=== PATIENT | female | born 1980 | race Caucasian/White ===

== ENCOUNTER 2025-01-03 16:29 | Emergency (ER) | payer SELFPAY ==
[~2025-01-03] VITALS: Ht 162.6 cm; Wt 68.3 kg
[2025-01-03 18:06] LABS: Hematocrit 44.9 % (36.0-46.0); Hemoglobin 15.4 g/dL (12.2-16.2); Mean Corpuscular Hemoglobin 30.9 pg (28.0-32.0); Mean Corpuscular Volume 90.3 fL (80.0-100.0); Nucleated Red Blood Cells % 0.1 %
[2025-01-03 18:16] LABS: Alanine Aminotransferase 14 U/L (7-40); Albumin 4.5 g/dL (3.2-4.8); Alkaline Phosphatase 93 U/L (46-116); Anion Gap 11 (5-15); BUN/Creatinine Ratio 9.5 (10.0-20.0); Bilirubin, Total 0.9 mg/dL (0.2-1.0); Blood Urea Nitrogen 9 mg/dL (9-23); Calcium 10.4 mg/dL (8.7-10.4); Sodium 140 mmol/L (136-145); Total Protein 7.3 g/dL (5.7-8.2)
[2025-01-03 18:17] LABS: Carbon Dioxide 20 mmol/L (20-31); Chloride 109 mmol/L (98-107); Glucose 112 mg/dL (74-106); Potassium 3.2 mmol/L (3.5-5.1)
--- NOTE | 2025-01-03 18:25 | ED.PDOC ---
GI ASSESSMENT HPI Comments 44y F who presents to the ED for chief complaint of abdominal pain. Pt states she has been having right greater than left upper abdominal pain radiating to the right flank since 0400 this AM. Pt states she has been having abdominal fullness and states it is causing her shortness of breath and states it is making it difficult for her to take a breath. Pt reports nausea, but no vomiting, diarrhea, constipation or dysuria. Pt has been having normal bowel movements. Pt otherwise denies any sick contacts at this time. Pt has noted temp of 97.4F but otherwise has stable vitals in the ED including BP 126/73, 02 sat of 96% on room air, rr 16 and heart rate of 86. Pt denies any other symptoms at this time. Patient expresses concern for liver cirrhosis, although she states she does not drink alcohol and does not report any other risk factors for liver disease. Chief Complaint: Abdominal Pain Time Seen by MD: 18:00 Primary Care Provider: NONE Reviewed Notes: Medications, Allergies Allergies: Coded Allergies: NO KNOWN ALLERGIES (Unverified , 01/03/25) Information Source: Patient Mode of Arrival: Ambulatory Past Medical History PAST MEDICAL HISTORY: HTN Surgical History: Denies all surgeries HARMONIC ANALYST History: Denies all HARMONIC ANALYST Hx Family History Family History: Unknown Social History Smoker: Non-Smoker Alcohol: Denies ETOH Use Drugs: Denies Drug Use Lives In: Home Constitutional: denies: chills, diaphoresis, fatigue, fever, malaise, sweats, weakness, others EENTM: denies: blurred vision, double vision, ear bleeding, ear discharge, ear drainage, ear pain, ear ringing, eye pain, eye redness, hearing loss, mouth pain, mouth swelling, nasal discharge, nose bleeding, nose congestion, nose pain, photophobia, tearing, throat pain, throat swelling, voice changes, others Respiratory: denies: cough, hemoptysis, orthopnea, SOB at rest, shortness of breath, SOB with excertion, stridor, wheezing, others Cardiovascular: denies: chest pain, dizzy spells, diaphoresis, Dyspnea on exertion, edema, irregular heart beat, left arm pain, lightheadedness, palpitations, PND, syncope, others Gastrointestinal: reports: abdominal pain, nausea; denies: abdomen distended, blood streaked bowels, constipated, diarrhea, dysphagia, difficulty swallowing, hematemesis, melena, poor appetite, poor fluid intake, rectal bleeding, rectal pain, vomiting, others Genitourinary: denies: abnormal vagina bleeding, burning, dyspareunia, dysuria, flank pain, frequency, hematuria, incontinence, pain, , vagina discharge, urgency, others Neurological: denies: dizziness, fainting, headache, left sided numbness, left sided weakness, numbness, paresthesia, pre-existing deficit, right sided numbness, right sided weakness, seizure, speech problems, tingling, tremors, weakness, others Musculoskeletal: denies: back pain, gout, joint pain, joint swelling, muscle pain, muscle stiffness, neck pain, others Integumetry: denies: bruises, change in color, change in hair/nails, dryness, laceration, lesions, lumps, rash, wounds, others Allergic/Immunocompromised: denies: Difficulty Healing, Frequent Infections, Hives, Itching, others Hematologic/Lymphatic: denies: anemia, blood clots, easy bleeding, easy bruising, swollen glands, others Endocrine: denies: excessive hunger, excessive sweating, excessive thirst, excessive urination, flushing, intolerance to cold, intolerance to heat, unexplained weight gain, unexplained weight loss, others Psychiatric: denies: anxiety, bipolar disorder, depression, hopeless, panic disorder, schizophrenia, sleepless, suicidal, others All Other Systems: Reviewed and Negative Physical Exam General Appearance: No Apparent Distress HEENT: Other (Pupils and face symmetric. Moist mucous membranes.) Neck: Full Range of Motion, Normal Inspection Respiratory: Lungs Clear, No Accessory Muscle Use, No Respiratory Distress, Normal Breath Sounds Cardiovascular: No Edema, No JVD, Regular Rate/Rhythm Breast Exam: Deferred Gastrointestinal: RUQ, Soft, Tenderness (Right flank tenderness to palpation) Genitalia: Deferred Pelvic: Deferred Rectal: Deferred Extremities: Normal inspection, Normal range of motion, Non-tender, No pedal edema Neurologic: Alert (Oriented x4), Normal Affect, Normal Mood, Other (Ambulatory) Cerebellar Function: NOT DONE Reflexes: NOT DONE Skin: Dry, Normal Color, Warm Lymphatic: NOT DONE EKG EKG : Comments Sinus rhythm, rate 86, normal intervals, normal axis, normal QRS, nonspecific T change. Was a procedure done? Was a procedure done?: No GI differential Dx Differential Diagnosis: Cholecystitis, Constipation, Gastritis/PUD, Gastroenteritis, Inflammatory BD, Pancreatitis, UTI, Dehydration, Electrolyte Imbalance, Food Poisoning, Bacterial, Viral, Kidney Stone Other Differential Diagnosis hepatic steatosis, cirrhosis, among others X-Ray, Labs, Meds, VS Vital Signs Date Time Temp Pulse Resp B/P (MAP) Pulse Ox O2 Delivery O2 Flow Rate FiO2 01/03/25 17:22 97.4 16 16 126/73 (90) 96 97.4 01/03/25 17:11 86 Lab Test 01/03/25 18:43 01/03/25 17:35 Range/Units Troponin I High Sensitivity < 3 L < 3 L </=34 ng/L White Blood Count 10.1 4.4-10.8 10^3/uL Red Blood Count 4.97 4.0-5.20 10^6/uL Hemoglobin 15.4 12.2-16.2 g/dL Hematocrit 44.9 36.0-46.0 % Mean Corpuscular Volume 90.3 80.0-100.0 fL Mean Corpuscular Hemoglobin 30.9 28.0-32.0 pg Mean Corpuscular Hemoglobin Concent 34.2 32.0-36.0 g/dL Red Cell Distribution Width 14.1 11.8-14.3 % Platelet Count 281 140-450 10^3/uL Mean Platelet Volume 9.1 6.9-10.8 fL Neutrophils (%) (Auto) 73.2 37.0-80.0 % Lymphocytes (%) (Auto) 15.5 10.0-50.0 % Monocytes (%) (Auto) 9.2 0.0-12.0 % Eosinophils (%) (Auto) 1.1 0.0-7.0 % Basophils (%) (Auto) 1.0 0.0-2.0 % Neutrophils # (Auto) 7.4 1.6-8.6 10 ^3/uL Lymphocytes # (Auto) 1.6 0.4-5.4 10 ^3/uL Monocytes # (Auto) 0.9 0-1.3 10 ^3/uL Eosinophils # (Auto) 0.1 0-0.8 10 ^3/uL Basophils # (Auto) 0.1 0-0.2 10 ^3/uL Nucleated Red Blood Cells 0.1 % Sodium Level 140 136-145 mmol/L Potassium Level 3.2 L 3.5-5.1 mmol/L Chloride Level 109 H 98-107 mmol/L Carbon Dioxide Level 20 20-31 mmol/L Anion Gap 11 5-15 Blood Urea Nitrogen 9 9-23 mg/dL Creatinine 0.95 0.550-1.02 mg/dL Glomerular Filtration Rate Calc 76 >90 mL/min BUN/Creatinine Ratio 9.5 L 10.0-20.0 Serum Glucose 112 H 74-106 mg/dL Calcium Level 10.4 8.7-10.4 mg/dL Total Bilirubin 0.9 0.2-1.0 mg/dL Aspartate Amino Transferase (AST) 17 13-40 U/L Alanine Aminotransferase (ALT) 14 7-40 U/L Alkaline Phosphatase 93 46-116 U/L B-Type Natriuretic Peptide 12.12 0-100 pg/mL Total Protein 7.3 5.7-8.2 g/dL Albumin 4.5 3.2-4.8 g/dL Lipase 35 12-53 U/L [place] [address] Ph: [phone] DIAGNOSTIC IMAGING Diagnostic Imaging Report : [id number] Signed PATIENT: KASSIDY BROWN ACCT: [id number] UNIT: [id number] : 1980 LOC: ER ROOM / BED: / AGE / SEX: 44 / F ADM STATUS: REG ER SERVICE 27 ORDERING PHYSICIAN: JEANETTE BA MD PROCEDURE(s): CXR1 - CHEST XRAY 1 VIEW REASON: sob ORDER NUMBER(s): [id number], ACCESSION NUMBER(s): [id number] EXAM: XY CHEST XRAY 1 VIEW TECHNIQUE: Single frontal chest radiograph CLINICAL HISTORY: sob COMPARISON: None Findings/Impression: Frontal chest radiograph demonstrates no acute osseous or superficial soft tissue abnormalities. The trachea is midline. The cardiac silhouette and mediastinum are within normal limits. No pneumothorax, pleural effusions, or consolidations. ATED BY: EUNICE CAVAZOS DO DICTATED DATE/TIME: 01/03/251938 SIGNED BY: EUNICE CAVAZOS DO SIGNED DATE/TIME: 01/03/251938 CC: [facility] [id number] [place] [id number] Ph: [phone] DIAGNOSTIC IMAGING Diagnostic Imaging Report : [id number] Signed PATIENT: KASSIDY BROWN ACCT: [id number] UNIT: [id number] : 1980 LOC: ER ROOM / BED: / AGE / SEX: 44 / F ADM STATUS: REG ER SERVICE 2425 ORDERING PHYSICIAN: JEAENTTE BA MD PROCEDURE(s): ABPL - CT AB PEL WO CON-NO ORAL OR IV REASON: sob, ruq/flank pain, abd bloating ORDER NUMBER(s): [id number], ACCESSION NUMBER(s): [id number] COMPUTERIZED TOMOGRAPHY ABDOMEN AND PELVIS WITHOUT CONTRAST REASON FOR EXAM: sob, ruq/flank pain, abd bloating COMPARISON: None TECHNIQUE: Spiral scans were acquired from the diaphragm to the symphysis pubis without intravenous contrast administration. 2-D coronal and sagittal reformatted images were provided. Radiation optimization: All CT scans at this facility use at least one of these dose optimization techniques: Automated exposure control mA and/or kV adjustment per patient size (includes targeted exams where dose is matched to clinical indication) or iterative reconstruction. RADIATION DOSE: CTDI: 10 mGy DLP: 548 mGy-cm FINDINGS: There is minimal linear atelectasis versus scarring at the left lung base. The visualized lung bases are otherwise clear. There is no pleural effusion. There is no pericardial effusion. The spleen is not enlarged. The liver is normal in size and contour. Evaluation of the abdominal organs is suboptimal in the absence of intravenous contrast. Unenhanced appearance of the pancreas is unremarkable. No calcified gallstone is identified. There is no pericholecystic edema. The adrenal glands are normal. The kidneys are similar in size. There is no hydronephrosis of either kidney. There is no renal, ureteral, or bladder calculus. The urinary bladder is within normal limits. There is no abdominal aortic aneurysm. There is no pathologic lymphadenopathy by size criteria. No free fluid is identified in the abdomen or pelvis. The uterus and ovaries are within normal limits. The colonic stool burden is small. The appendix is normal. There is no significant distention of the small bowel to suggest obstruction. No acute osseous abnormality is identified. IMPRESSION: No acute finding in the abdomen or pelvis. Normal appendix. No evidence of bowel obstruction. ATED BY: HA PENG MD DICTATED DATE/TIME: 01/03/251953 SIGNED BY: HA PENG MD SIGNED DATE/TIME: 01/03/251953 CC: X-Ray, Labs, Meds, VS Comment 44-year-old female with a history of hypertension complaining of upper abdominal fullness and right flank pain, associated with shortness of breath. Vitals unremarkable Exam remarkable for right upper quadrant and right flank tenderness to palpation Rhythm strip independently interpreted by me: Sinus rhythm, rate 86, no ectopy. Chest x-ray and CT abdomen and pelvis unremarkable CBC normal, CMP remarkable for potassium 3.2, lipase normal, BNP and 2 serial troponins negative , UA pending Patient treated with the following in the ED: Effervescent potassium 50 mEq p.o., Toradol 60 mg IM On re-evaluation, patient states symptoms have improved. Vitals were stable. Hospitalization was considered, however patient was well-appearing on re- evaluation, was not short of breath, oxygen saturation was normal on room air, and workup was essentially unremarkable. I now no longer feel hospitalization is necessary. Patient now appears stable for close outpatient follow-up with her primary physician. I will cover the patient with oral antibiotics for possible UTI, since she never provided a urine sample. Rx ibuprofen, Macrobid Time of 1ST Reevaluation: 22:00 Reevaluation 1ST: Improved Patient Education/Counseling: Diagnosis, Treatment, Need For Follow Up Family Education/Counseling: No Family Present SEPSIS Sepsis Screen Date sepsis recognized/suspect: Jan 03, 2025 Time Sepsis recognized/suspect: 1649 Recent Procedure: No On Antibiotic Therapy: No Respiratory Rate >20: No Heart Rate >90: No Temp<36 C (96.8 F) or >38.3 C: No SBP <90 or MAP <65 mmHG: No New Acute Mental Status Change: No Is the patient on CPAP, BIPAP,: No Physician Orders Urinalysis (01/03/25 17:14) Test, Urine (01/03/25 17:14) Chest Xray 1 View (01/03/25 17:28) Ct Ab Pel Wo Con-No Oral Or Iv (01/03/25 17:28) Electrocardigram (01/03/25 18:00) Potassium Effervesent Tab (Klor-Con/Ef) (01/03/25 22:00) Vital Signs Date Time Temp Pulse Resp B/P (MAP) Pulse Ox O2 Delivery O2 Flow Rate FiO2 01/03/25 17:22 97.4 16 16 126/73 (90) 96 97.4 01/03/25 17:11 86 Laboratory Tests Test 01/03/25 17:35 White Blood Count 10.1 10^3/uL (4.4-10.8) Departure 1 Departure Time of Disposition: 22:00 Impression: Primary Impression: Abdominal pain Qualified Codes: R10.10 - Upper abdominal pain, unspecified Additional Impression: Shortness of breath Disposition: HOME / SELF CARE / HOMELESS Condition: Stable Additional Instructions: Your blood tests, including liver function tests, and screening tests for heart attack and heart failure, were unremarkable. Your chest x-ray was normal. Your CT abdomen and pelvis was normal, without any evidence of liver problems. I have enclosed the reports below. You did not provide a urine sample, so I have prescribed antibiotics to cover a possible urinary tract infection. I have also prescribed pain medications and medication for nausea. Follow-up with your primary doctor in 1-2 days. Return to ER for persistent or worsening symptoms. [place] [address] Ph: [phone] DIAGNOSTIC IMAGING Diagnostic Imaging Report : [id number] Signed PATIENT: KASSIDY BROWN ACCT: [id number] UNIT: [id number] : 1980 LOC: ER ROOM / BED: / AGE / SEX: 44 / F ADM STATUS: REG ER SERVICE 1318 ORDERING PHYSICIAN: JEANETTE BA MD PROCEDURE(s): CXR1 - CHEST XRAY 1 VIEW REASON: sob ORDER NUMBER(s): [id number], ACCESSION NUMBER(s): [id number] EXAM: XY CHEST XRAY 1 VIEW TECHNIQUE: Single frontal chest radiograph CLINICAL HISTORY: sob COMPARISON: None Findings/Impression: Frontal chest radiograph demonstrates no acute osseous or superficial soft tissue abnormalities. The trachea is midline. The cardiac silhouette and mediastinum are within normal limits. No pneumothorax, pleural effusions, or consolidations. [place] [address] Ph: [phone] DIAGNOSTIC IMAGING Diagnostic Imaging Report : [id number] Signed PATIENT: KASSIDY BROWN ACCT: [id number] UNIT: [id number] : 1980 LOC: ER ROOM / BED: / AGE / SEX: 44 / F ADM STATUS: REG ER SERVICE 1728 ORDERING PHYSICIAN: JEANETTE BA MD PROCEDURE(s): ABPL - CT AB PEL WO CON-NO ORAL OR IV REASON: sob, ruq/flank pain, abd bloating ORDER NUMBER(s): [id number], ACCESSION NUMBER(s): [id number] COMPUTERIZED TOMOGRAPHY ABDOMEN AND PELVIS WITHOUT CONTRAST REASON FOR EXAM: sob, ruq/flank pain, abd bloating COMPARISON: None TECHNIQUE: Spiral scans were acquired from the diaphragm to the symphysis pubis without intravenous contrast administration. 2-D coronal and sagittal reformatted images were provided. Radiation optimization: All CT scans at this facility use at least one of these dose optimization techniques: Automated exposure control mA and/or kV adjustment per patient size (includes targeted exams where dose is matched to clinical indication) or iterative reconstruction. RADIATION DOSE: CTDI: 10 mGy DLP: 548 mGy-cm FINDINGS: There is minimal linear atelectasis versus scarring at the left lung base. The visualized lung bases are otherwise clear. There is no pleural effusion. There is no pericardial effusion. The spleen is not enlarged. The liver is normal in size and contour. Evaluation of the abdominal organs is suboptimal in the absence of intravenous contrast. Unenhanced appearance of the pancreas is unremarkable. No calcified gallstone is identified. There is no pericholecystic edema. The adrenal glands are normal. The kidneys are similar in size. There is no hydronephrosis of either kidney. There is no renal, ureteral, or bladder calculus. The urinary bladder is within normal limits. There is no abdominal aortic aneurysm. There is no pathologic lymphadenopathy by size criteria. No free fluid is identified in the abdomen or pelvis. The uterus and ovaries are within normal limits. The colonic stool burden is small. The appendix is normal. There is no significant distention of the small bowel to suggest obstruction. No acute osseous abnormality is identi fied. IMPRESSION: No acute finding in the abdomen or pelvis. Normal appendix. No evidence of bowel obstruction. e-Prescriptions Nitrofurantoin Monohydrate Mac (Macrobid) 100 Mg Cap 100 MG PO BID for 7 Days, #14 CAP Prov: JEANETTE BA MD 01/03/25 Ondansetron Odt 4MG Tab (ZOFRAN PO) 4 Mg Tb 4 MG PO TID PRN, #30 TAB Prn nausea/vomiting ODT TAB-DISSOLVE IN MOUTH, THEN SWALLOW Prov: JEANETTE BA MD 01/03/25 Ibuprofen Micronized (Ibuprofen) 800 Mg Tab 800 MG PO Q8HP PRN, #30 TAB Prn pain. Take with food. Prov: JEANETTE BA MD 01/03/25 Discharged With: Relative Critical Care Note Critical Care Time?: No Stability Stability form required: No Heart Score Heart Score: Heart Score Response (Comments) Value History N/A 0 EKG N/A 0 Age N/A 0 Risk Factors N/A 0 Troponin N/A 0 Total 0 I personally scribed for JEANETTE BA MDAUTREVA) on 01/03/25 at 18:25. Electronically submitted by Moise Sorenson ([employer]). I personally scribed for JEANETTE BA MD) on 01/03/25 at 20:40. Electronically submitted by Moise Sorenson ([employer]). JEANETTE BA MD Jan 03, 2025 18:25
--- NOTE | 2025-01-03 19:42 | DVH ---
EXAM: XY CHEST XRAY 1 VIEW TECHNIQUE: Single frontal chest radiograph CLINICAL HISTORY: sob COMPARISON: None Findings/Impression: Frontal chest radiograph demonstrates no acute osseous or superficial soft tissue abnormalities. The trachea is midline. The cardiac silhouette and mediastinum are within normal limits. No pneumothorax, pleural effusions, or consolidations.
--- NOTE | 2025-01-03 19:56 | DVH ---
COMPUTERIZED TOMOGRAPHY ABDOMEN AND PELVIS WITHOUT CONTRAST REASON FOR EXAM: sob, ruq/flank pain, abd bloating COMPARISON: None TECHNIQUE: Spiral scans were acquired from the diaphragm to the symphysis pubis without intravenous c ontrast administration. 2-D coronal and sagittal reformatted images were provided. Radiation optimiza tion: All CT scans at this facility use at least one of these dose optimization techniques: Automated exposure control mA and/or kV adjustment per patient size (includes targeted exams where dose is mat ched to clinical indication) or iterative reconstruction. RADIATION DOSE: CTDI: 10 mGy DLP: 548 mGy-cm FINDINGS: There is minimal linear atelectasis versus scarring at the left lung base. The visualized lung bases are otherwise clear. There is no pleural effusion. There is no pericardial effusion. The spleen is not enlarged. The liver is normal in size and contour. Evaluation of the abdominal org ans is suboptimal in the absence of intravenous contrast. Unenhanced appearance of the pancreas is u nremarkable. No calcified gallstone is identified. There is no pericholecystic edema. The adrenal gl ands are normal. The kidneys are similar in size. There is no hydronephrosis of either kidney. Ther e is no renal, ureteral, or bladder calculus. The urinary bladder is within normal limits. There is no abdominal aortic aneurysm. There is no pathologic lymphadenopathy by size criteria. No free fluid is identified in the abdomen or pelvis. The uterus and ovaries are within normal limits. The colonic stool burden is small. The appendix is normal. There is no significant distention of the small bowel to suggest obstruction. No acute osseous abnormality is identified. IMPRESSION: No acute finding in the abdomen or pelvis. Normal appendix. No evidence of bowel obstruction.
[2025-01-03] MEDS ORDERED: NITR-87 PO (22:12)
[2025-01-03] MEDS ORDERED: ZOFR4T PO (22:12)
[2025-01-03] MEDS ORDERED: IBUP-1455 PO (22:12)
[2025-01-03] MEDS: KETOROLAC TROMETH 60MG/2ML VIAL IM ONE (23:34)
[2025-01-03] MEDS: POTASSIUM EFFERVESENT TAB 25 MEQ PO ONE (23:34)
[2025-01-03 23:39] VITALS: BP 149/88; PULSE 65; RESP 20; TEMP 97.5; O2SAT 100
--- NOTE | 2025-01-04 06:36 | ECG ---
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
== END 2025-01-03 23:55 | disposition home or self-care (01) ==
LOC: ER 16:29
DX: R10.12 Left upper quadrant pain (principal); R06.02 Shortness of breath; I10 Essential (primary) hypertension
CPT/HCPCS: 36415; 71045; 74176; 80053; 83690; 83880; 84484; 85025; 93005

== ENCOUNTER 2025-02-01 16:28 | Emergency (ER) | payer MEDICAID ==
[~2025-02-01] VITALS: Ht 162.6 cm; Wt 67.8 kg
[~2025-02-01 16:28] MED LIST: IBUP-1455 PO; NITR-87 PO; ZOFR4T PO
--- NOTE | 2025-02-01 16:42 | ED.PDOC ---
GI ASSESSMENT HPI Comments 44-year-old female brought in by private car stating she may have ingested approximately a half a cup of antifreeze about an hour ago. Patient states there was a cup of clear liquids sitting on a table, which she drank thinking it was water. She states the liquid was tasteless, however she became concerned might have been anti freeze, as she subsequently developed upper abdominal discomfort and nausea. She denies vomiting, fever, diarrhea, constipation, dysuria or sick contacts. Chief Complaint: Ingestion Time Seen by MD: 16:38 Primary Care Provider: NONE Reviewed Notes: Medications, Allergies Allergies: Coded Allergies: NO KNOWN ALLERGIES (Unverified , 01/03/25) Home Meds Active Scripts Omeprazole Magnesium (Omeprazole) 20 Mg Tab, 20 MG PO DAILY PRN, #30 TAB Prn abdominal pain Prov:JEANETTE BA MD 02/01/25 Ondansetron Odt 4MG Tab (ZOFRAN PO) 4 Mg Tb, 4 MG PO TID PRN, #20 TAB Prn nausea/vomiting ODT TAB-DISSOLVE IN MOUTH, THEN SWALLOW Prov:JEANETTE BA MD 02/01/25 Nitrofurantoin Monohydrate Mac (Macrobid) 100 Mg Cap, 100 MG PO BID for 7 Days, #14 CAP Prov:JEANETTE BA MD 01/03/25 Ondansetron Odt 4MG Tab (ZOFRAN PO) 4 Mg Tb, 4 MG PO TID PRN, #30 TAB Prn nausea/vomiting ODT TAB-DISSOLVE IN MOUTH, THEN SWALLOW Prov:JEANETTE BA MD 01/03/25 Ibuprofen Micronized (Ibuprofen) 800 Mg Tab, 800 MG PO Q8HP PRN, #30 TAB Prn pain. Take with food. 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 Family History Family History: Unknown Social History Smoker: Non-Smoker Alcohol: Occasionally Drugs: Denies Drug Use Lives In: Home Constitutional: denies: chills, diaphoresis, fatigue, fever, malaise, sweats, weakness, others EENTM: denies: blurred vision, double vision, ear bleeding, ear discharge, ear drainage, ear pain, ear ringing, eye pain, eye redness, hearing loss, mouth pain, mouth swelling, nasal discharge, nose bleeding, nose congestion, nose pain, photophobia, tearing, throat pain, throat swelling, voice changes, others Respiratory: denies: cough, hemoptysis, orthopnea, SOB at rest, shortness of breath, SOB with excertion, stridor, wheezing, others Cardiovascular: denies: chest pain, dizzy spells, diaphoresis, Dyspnea on exe rtion, edema, irregular heart beat, left arm pain, lightheadedness, palpitations, PND, syncope, others Gastrointestinal: reports: abdominal pain, nausea; denies: abdomen distended, blood streaked bowels, constipated, diarrhea, dysphagia, difficulty swallowing, hematemesis, melena, poor appetite, poor fluid intake, rectal bleeding, rectal pain, vomiting, others Genitourinary: denies: abnormal vagina bleeding, burning, dyspareunia, dysuria, flank pain, frequency, hematuria, incontinence, pain, , vagina discharge, urgency, others Neurological: denies: dizziness, fainting, headache, left sided numbness, left sided weakness, numbness, paresthesia, pre-existing deficit, right sided numbness, right sided weakness, seizure, speech problems, tingling, tremors, weakness, others Musculoskeletal: denies: back pain, gout, joint pain, joint swelling, muscle pain, muscle stiffness, neck pain, others Integumetry: denies: bruises, change in color, change in hair/nails, dryness, laceration, lesions, lumps, rash, wounds, others Allergic/Immunocompromised: denies: Difficulty Healing, Frequent Infections, Hives, Itching, others Hematologic/Lymphatic: denies: anemia, blood clots, easy bleeding, easy bruisin g, swollen glands, others Endocrine: denies: excessive hunger, excessive sweating, excessive thirst, excessive urination, flushing, intolerance to cold, intolerance to heat, unexplained weight gain, unexplained weight loss, others Psychiatric: denies: anxiety, bipolar disorder, depression, hopeless, panic disorder, schizophrenia, sleepless, suicidal, others All Other Systems: Reviewed and Negative Physical Exam General Appearance: No Apparent Distress HEENT: Other (Pupils and face symmetric. Moist mucous membranes.) Neck: Full Range of Motion, Normal Inspection Respiratory: Lungs Clear, No Accessory Muscle Use, No Respiratory Distress, Normal Breath Sounds Cardiovascular: No Edema, No JVD, Tachycardia Breast Exam: Deferred Gastrointestinal: Non Tender, Soft Genitalia: Deferred Pelvic: Deferred Rectal: Deferred Extremities: Normal inspection, Normal range of motion, Non-tender, No pedal edema Neurologic: Alert (Oriented x4), Normal Affect, Normal Mood, Other (Ambulatory) Cerebellar Function: NOT DONE Reflexes: NOT DONE Skin: Dry, Normal Color, Warm Lymphatic: NOT DONE Was a procedure done? Was a procedure done?: No GI differential Dx Differential Diagnosis: Gastritis/PUD, Gastroenteritis, Hepatitis, Inflammatory BD, Pancreatitis, UTI, Dehydration, Electrolyte Imbalance, Food Poisoning, , Bacterial, Viral, Stress Ulcer X-Ray, Labs, Meds, VS Vital Signs Date Time Temp Pulse Resp B/P (MAP) Pulse Ox O2 Delivery O2 Flow Rate FiO2 02/01/25 21:43 85 19 128/87 (101) 100 02/01/25 20:00 97 02/01/25 19:30 98.2 98 19 123/82 (96) 100 98.2 02/01/25 19:30 98 19 100 Room Air* 0 21 02/01/25 18:42 98.4 112 24 145/92 (109) 99 98.4 02/01/25 18:42 112 24 99 Room Air* 0 21 02/01/25 18:14 108 20 100 Room Air 02/01/25 18:14 97.8 108 20 132/89 (103) 100 97.8 02/01/25 17:36 139/107 02/01/25 16:30 97.6 118 18 139/107 97 97.6 Lab Test 02/01/25 19:31 02/01/25 17:33 02/01/25 16:51 Range/Units White Blood Count 11.5 H 4.4-10.8 10^3/uL Red Blood Count 5.08 4.0-5.20 10^6/uL Hemoglobin 15.7 12.2-16.2 g/dL Hematocrit 45.9 36.0-46.0 % Mean Corpuscular Volume 90.3 80.0-100.0 fL Mean Corpuscular Hemoglobin 30.9 28.0-32.0 pg Mean Corpuscular Hemoglobin Concent 34.2 32.0-36.0 g/dL Red Cell Distribution Width 13.6 11.8-14.3 % Platelet Count 279 140-450 10^3/uL Mean Platelet Volume 8.8 6.9-10.8 fL Neutrophils (%) (Auto) 73.1 37.0-80.0 % Lymphocytes (%) (Auto) 18.9 10.0-50.0 % Monocytes (%) (Auto) 6.2 0.0-12.0 % Eosinophils (%) (Auto) 0.5 0.0-7.0 % Basophils (%) (Auto) 1.3 0.0-2.0 % Neutrophils # (Auto) 8.4 1.6-8.6 10 ^3/uL Lymphocytes # (Auto) 2.2 0.4-5.4 10 ^3/uL Monocytes # (Auto) 0.7 0-1.3 10 ^3/uL Eosinophils # (Auto) 0.1 0-0.8 10 ^3/uL Basophils # (Auto) 0.1 0-0.2 10 ^3/uL Nucleated Red Blood Cells 0.1 % Sodium Level 141 136-145 mmol/L Potassium Level 3.1 L 3.5-5.1 mmol/L Chloride Level 111 H 98-107 mmol/L Carbon Dioxide Level 17 L 20-31 mmol/L Anion Gap 13 5-15 Blood Urea Nitrogen 6 L 9-23 mg/dL Creatinine 0.84 0.550-1.02 mg/dL Glomerular Filtration Rate Calc 88 >90 mL/min BUN/Creatinine Ratio 7.1 L 10.0-20.0 Serum Glucose 76 74-106 mg/dL Serum Osmolality 293 289 278-298 mOsm/kg Calcium Level 9.6 8.7-10.4 mg/dL Total Bilirubin 0.6 0.2-1.0 mg/dL Aspartate Amino Transferase (AST) 14 13-40 U/L Alanine Aminotransferase (ALT) 12 7-40 U/L Alkaline Phosphatase 97 46-116 U/L Total Protein 7.3 5.7-8.2 g/dL Albumin 4.5 3.2-4.8 g/dL Lipase 44 12-53 U/L Acetaminophen Level < 2.0 L 10.0-20.0 UG/ML Plasma/Serum Blood Alcohol 3.1 <10 mg/dL Blood Gas Specimen Type Arterial Blood Gas Sample Site Left radial Blood Gas Patient Temperature 37.0 Arterial Blood Date Drawn [id number] Arterial Blood pH 7.523 H 7.350-7.450 Arterial Blood Partial Pressure CO2 24.9 L 32.0-45.0 mmHg Arterial Blood Partial Pressure O2 93.2 83.0-108.0 mmHg Arterial Blood HCO3 20.0 L 21.0-28.0 mmol/L Arterial Blood Oxygen Saturation 97.6 94.0-98.0 % Arterial Blood Base Excess -0.8 -2.0-3.0 mmol/L Arterial Blood Oxyhemoglobin 96.2 94.0-98.0 % Arterial Blood Carboxyhemoglobin 0.8 0.5-1.5 % Arterial Blood Methemoglobin 0.6 0.0-1.5 % Chris Test Yes Blood Gas Total Hemoglobin 15.80 12.0-16.0 g/dL Blood Gas Liter Flow 0.00 Blood Gas Modality Room air FiO2 % 21.0 Current Medications Medications (Trade) Dose Ordered Sig/Mike Route Start Time Stop Time Status Last Admin Sodium Chloride 1,000 ml @ 1,000 mls/hr Q1H ONCE IV 02/01/25 16:45 02/01/25 17:44 DC 02/01/25 16:45 Ondansetron HCl (Zofran) 4 mg ONCE ONCE IV 02/01/25 16:45 02/01/25 16:46 DC 02/01/25 17:25 Pantoprazole Sodium (Protonix) 40 mg ONCE ONCE IV 02/01/25 16:45 02/01/25 16:46 DC 02/01/25 17:25 Hydralazine HCl (Apresoline Injection) 5 mg ONCE ONCE IV 02/01/25 17:30 02/01/25 17:31 DC 02/01/25 17:36 X-Ray, Labs, Meds, VS Comment 44-year-old female with a history of hypertension and ADHD complaining of upper abdominal discomfort and nausea status post drinking a half cup of clear liquids that she is concerned might have been anti freeze. Vitals remarkable for heart rate 118, BP 139/107 Exam remarkable for tachycardia Rhythm strip independently interpreted by me: Sinus tach, rate 118, no ectopy. CBC unremarkable, CMP remarkable for potassium 3.1, lipase normal, serum osmol normal, ABG pH 7.523, pCO2 24.9, bicarb 20, Tylenol less than 2, alcohol 3.1. Poison control was contacted and recommended the above laboratory studies and 4- 6 hour observation period for any changes. Patient treated with the following in the ED: 1 L 0.9 normal saline IV bolus, Zofran 4 mg IV, Protonix 40 mg IV, effervescent potassium 50 mEq p.o. On re-evaluation, nausea has improved. Vitals were stable. Abdominal exam is benign. Hospitalization was considered, however patient had rapid improvement of symptoms with treatment in the ED, and I no longer hospitalization is necessary. Patient now appears stable for discharge with close outpatient follow-up with her primary physician. Rx Zofran, omeprazole Time of 1ST Reevaluation: 17:08 Reevaluation 1ST: Unchanged Time of 2ND Reevaluation: 22:29 Reevaluation 2ND: Improved Patient Education/Counseling: Diagnosis, Treatment, Need For Follow Up Family Education/Counseling: No Family Present SEPSIS Sepsis Screen Date sepsis recognized/suspect: Feb 01, 2025 Time Sepsis recognized/suspect: 1631 Recent Procedure: No On Antibiotic Therapy: No Respiratory Rate >20: No Heart Rate >90: Yes Temp<36 C (96.8 F) or >38.3 C: No SBP <90 or MAP <65 mmHG: No New Acute Mental Status Change: No Is the patient on CPAP, BIPAP,: No SEPSIS EXCLUSION NOTE: Sepsis Exclusion Note: Patient presents with SIRS criteria, but the SIRS response is attributed to [discomfort ], not a suspected infection. Sepsis bundle is not initiated at this time, due to this reason. Further management will focus on the treatment of the above condition (s). Physician Orders Urinalysis (02/01/25 16:39) Test, Urine (02/01/25 16:39) Abg W/ Co-Ox (02/01/25 16:39) Drug Screen (02/01/25 16:49) Potassium Effervesent Tab (Klor-Con/Ef) (02/01/25 22:15) Vital Signs Date Time Temp Pulse Resp B/P (MAP) Pulse Ox O2 Delivery O2 Flow Rate FiO2 02/01/25 21:43 85 19 128/87 (101) 100 02/01/25 20:00 97 02/01/25 19:30 98.2 98 19 123/82 (96) 100 98.2 02/01/25 19:30 98 19 100 Room Air* 0 21 02/01/25 18:42 98.4 112 24 145/92 (109) 99 98.4 02/01/25 18:42 112 24 99 Room Air* 0 21 02/01/25 18:14 108 20 100 Room Air 02/01/25 18:14 97.8 108 20 132/89 (103) 100 97.8 02/01/25 17:36 139/107 02/01/25 16:30 97.6 118 18 139/107 97 97.6 Laboratory Tests Test 02/01/25 19:31 White Blood Count 11.5 10^3/uL (4.4-10.8) H Medications Medications Dose Ordered Sig/Mike Route Start Time Stop Time Status Last Admin Dose Admin Hydralazine HCl 5 mg ONCE ONCE IV 02/01/25 17:30 02/01/25 17:31 DC 02/01/25 17:36 Ondansetron HCl 4 mg ONCE ONCE IV 02/01/25 16:45 02/01/25 16:46 DC 02/01/25 17:25 Pantoprazole Sodium 40 mg ONCE ONCE IV 02/01/25 16:45 02/01/25 16:46 DC 02/01/25 17:25 Sodium Chloride 1,000 ml @ 1,000 mls/hr Q1H ONCE IV 02/01/25 16:45 02/01/25 17:44 DC 02/01/25 16:45 Departure 1 Departure Time of Disposition: 22:25 Impression: Primary Impression: Ingestion of nontoxic substance Qualified Codes: T65.91XA - Toxic effect of unspecified substance, accidental (unintentional), initial encounter Additional Impressions: Abdominal pain Qualified Codes: R10.13 - Epigastric pain Nausea Disposition: HOME / SELF CARE / HOMELESS Condition: Stable Additional Instructions: Your blood tests were unremarkable except for a slightly low potassium, which we have corrected in the ER. I have prescribed medication for your symptoms. Follow-up with your primary doctor in 1-2 days. Return to ER for persistent or worsening symptoms. e-Prescriptions Omeprazole Magnesium (Omeprazole) 20 Mg Tab 20 MG PO DAILY PRN, #30 TAB Prn abdominal pain Prov: JEANETTE BA MD 02/01/25 Ondansetron Odt 4MG Tab (ZOFRAN PO) 4 Mg Tb 4 MG PO TID PRN, #20 TAB Prn nausea/vomiting ODT TAB-DISSOLVE IN MOUTH, THEN SWALLOW Prov: JEANETTE BA MD 02/01/25 Discharged With: Relative Critical Care Note Critical Care Time?: No Stability Stability form required: No Heart Score Heart Score: Heart Score Response (Comments) Value History N/A 0 EKG N/A 0 Age N/A 0 Risk Factors N/A 0 Troponin N/A 0 Total 0 I personally scribed for JEANETTE BA MD ([email or web address]) on 02/01/25 at 16:42. Electronically submitted by Eder Patterson ([email or web address]). JEANETTE BA MD Feb 01, 2025 16:42
[2025-02-01] MEDS: SODIUM CHLORIDE 0.9% 1,000 ML IV ONE (16:45)
[2025-02-01 16:55] LABS: Base Excess -0.8 mmol/L (-2.0-3.0)
[2025-02-01] MEDS: MORPHINE SULFATE INJ 2 MG/ml SYRG IV ONE (16:58)
[2025-02-01] MEDS: ONDANSETRON HCL 4 MG/2 ML VIAL IV ONE (17:25)
[2025-02-01] MEDS: PANTOPRAZOLE 40 MG/10 ML VIAL INJ IV ONE (17:25)
[2025-02-01] MEDS: hydrALAZINE HCL 20 MG/ML VL IV ONE (17:36)
[2025-02-01 18:42] VITALS: PULSE 112; RESP 24; O2SAT 99
[2025-02-01 19:30] VITALS: PULSE 98; RESP 19; TEMP 98.2; O2SAT 100
[2025-02-01 19:54] LABS: Anion Gap 13 (5-15)
[2025-02-01 19:59] LABS: BUN/Creatinine Ratio 7.1 (10.0-20.0)
[2025-02-01 20:04] LABS: Alanine Aminotransferase 12 U/L (7-40); Albumin 4.5 g/dL (3.2-4.8); Alkaline Phosphatase 97 U/L (46-116); Bilirubin, Total 0.6 mg/dL (0.2-1.0); Blood Urea Nitrogen 6 mg/dL (9-23); Calcium 9.6 mg/dL (8.7-10.4); Carbon Dioxide 17 mmol/L (20-31); Chloride 111 mmol/L (98-107); Glucose 76 mg/dL (74-106); Lipase 44 U/L (12-53); Potassium 3.1 mmol/L (3.5-5.1); Sodium 141 mmol/L (136-145); Total Protein 7.3 g/dL (5.7-8.2)
[2025-02-01 20:13] LABS: Hematocrit 45.9 % (36.0-46.0); Hemoglobin 15.7 g/dL (12.2-16.2); Mean Corpuscular Hemoglobin 30.9 pg (28.0-32.0); Mean Corpuscular Volume 90.3 fL (80.0-100.0); Nucleated Red Blood Cells % 0.1 %
[2025-02-01 21:43] VITALS: BP 128/87; PULSE 85; RESP 19; O2SAT 100
[2025-02-01] MEDS ORDERED: OMEP-434 PO (22:31)
[2025-02-01] MEDS: POTASSIUM EFFERVESENT TAB 25 MEQ PO ONE (22:39)
== END 2025-02-01 23:11 | disposition home or self-care (01) ==
LOC: ER 16:28
DX: T65.891A Toxic effect of other specified substances, accidental (unintentional), initial encounter (principal); R11.0 Nausea; R10.13 Epigastric pain; I10 Essential (primary) hypertension; F10.90 Alcohol use, unspecified, uncomplicated; Z79.899 Other long term (current) drug therapy; Y92.89 Other specified places as the place of occurrence of the external cause; Y90.9 Presence of alcohol in blood, level not specified
CPT/HCPCS: 36415; 36600; 80053; 80320; 80329; 82805; 83690; 83930; 85025; 96361; 96374; 96375; 99285; J0360; J2405; J2470; J7030

== ENCOUNTER 2025-02-28 23:15 | Emergency (ER) | payer MEDICAID ==
[~2025-02-28] VITALS: Ht 165.1 cm; Wt 72.7 kg
[~2025-02-28 23:15] MED LIST changes: +OMEP-434 PO
--- NOTE | 2025-03-01 00:19 | DVH ---
INDICATION: RUQ PAIN TECHNIQUE: Multiple real-time sonographic images were obtained of the right upper quadrant. COMPARISON: None FINDINGS: The liver demonstrates homogenous echotexture without focal mass lesions. The liver measure s 14 cm. There is no intrahepatic or extrahepatic ductal dilatation. The common duct measures 4 mm. The gallbladder is without evidence of stone or sludge. The gallbladder wall measures 4 mm and is wi thin normal limits. The right kidney measures 10.4 cm. The right kidney is normal in contour, size, and shape. The echo genicity is normal. There is no hydronephrosis. Visualized portions of the pancreas are unremarkable. IMPRESSION: 1. Nonspecific mild thickening of the gallbladder wall. No cholelithiasis or biliary sludge.
[2025-03-01 00:31] LABS: Hematocrit 40.6 % (36.0-46.0); Hemoglobin 14.2 g/dL (12.2-16.2); Mean Corpuscular Hemoglobin 30.9 pg (28.0-32.0); Mean Corpuscular Volume 88.1 fL (80.0-100.0); Nucleated Red Blood Cells % 0.0 %
[2025-03-01 00:46] LABS: Alanine Aminotransferase 17 U/L (7-40); Albumin 3.9 g/dL (3.2-4.8); Alkaline Phosphatase 89 U/L (46-116); Anion Gap 10 (5-15); Bilirubin, Total 0.5 mg/dL (0.2-1.0); Calcium 8.8 mg/dL (8.7-10.4); Carbon Dioxide 29 mmol/L (20-31); Chloride 102 mmol/L (98-107); Lipase 46 U/L (12-53); Sodium 141 mmol/L (136-145); Total Protein 6.8 g/dL (5.7-8.2)
[2025-03-01 00:54] LABS: BUN/Creatinine Ratio 6.3 (10.0-20.0); Blood Urea Nitrogen < 5 mg/dL (9-23); Glucose 139 mg/dL (74-106); Potassium 2.6 mmol/L (3.5-5.1)
--- NOTE | 2025-03-01 02:08 | ED.PDOC ---
GI ASSESSMENT HPI Comments HPI: 44 year old female presents to the ED via EMS with a chief complaint of abdominal pain onset 2 hours prior to ED arrival. Patient is experiencing intermittent epigastric pain as well as nausea, dizziness, began about 2 hours prior to ED arrival. Patient was at [facility], for temporarily housing, has been homeless for the past month. She states she has experienced similar pain in the past, resolves on its own. She also states she was on Bactrim a few weeks ago due to UTI. Denies vomiting, diarrhea, chest pain, shortness of breath, fever, chills, hematemesis, dysuria, hematuria. No other symptoms or modifying factors present at this time. Pain is nonradiating. No alleviating or precipitating factors. Initial Vitals BP: 136/91 HR: 99 RR: 16 O2: 96% Temp: 98.4 F Past Medical History: HTN Past Surgical History: Denies Social History: Denies smoking, and drug use. ETOH occasionally. Medications: Denies Allergies: NKDA HPI: Poor Historian. Patient is residing at the [facility]. REVIEW OF SYSTEMS: CONSTITUTIONAL: Denies acute: fever, diaphoresis, chills, generalized weakness. HEAD: Denies acute: headache, photophobia Eyes: Denies acute: Double vision, vision loss, eye pain, eye discharge. EARS: Denies acute: tinnitus, hearing loss, ear discharge, ear pain, THROAT: Denies acute: sore throat, swelling, difficulty swallowing , pain with swallowing, change in voice. NECK: Denies acute: neck pain, neck swelling, stiff neck. HEART: Denies acute : chest pain, palpitations, LUNGS: Denies acute: SOB, wheezing, cough, hemoptysis ABDOMEN: Denies acute: Vomiting, diarrhea, melena , hematemesis, hematochezia SKIN: Denies acute: rash, redness, lesions, itchiness. EXTREMITIES: Denies acute: calf pain, numbness, tingling, weakness, denies pain in extremity. Denies acute: Low back pain. Neuro: Denies acute: focal neurological deficit, motor or sensory focal neurological deficit, tremors, seizure like activity, confusion, dizziness, change in mental status, loss of bowel or bladder function, cauda equina like symptoms. : Denies acute: dysuria, hematuria, flank pain, increase in urinary frequency. PSYCH: Denies acute: hallucination, suicidal ideation, homicidal ideation. FEMALE: Denies acute: abnormal vaginal bleeding, foul odor, unusual discharge. PHYSICAL EXAM: General: -----no---acute distress, awake and alert. Head: normocephalic, atraumatic. Neck: supple, trachea is midline, no swelling. Throat: Normal phonation. Eyes:, no erythema, no purulent discharge, no proptosis, no icterus. Heart: regular rate, regular rhythm, no significant murmur appreciated. Lungs: no apparent respiratory distress, Able to speak in full sentences. No wheezing, no rhonchi, no crackles. No stridors Clear to auscultation bilaterally. Abdomen: Epigastric right upper quadrant tender to palpation, non distended, soft, no guarding, no rebound, + bowel sounds. Neuro: Awake, Alert, oriented to name, self, situation, follows commands GCS=15. Speech is normal. Skin: no petechia, no purpura, no cyanosis, non-pale, not jaundice. Lower extremities: --no - Pitting edema no deformity, no focal swelling, no calf TTP. Makes eye contact. moves all four extremities. Face: no apparent facial droop. Ambulating in the ED independently. ED COURSE: DISCLAIMER: This medical document was created using an electronic medical record system with voice recognition software and computerized dictation system. Although this document has been carefully reviewed, there might still be some phonetic and typographical errors. Occasional wrong-word or "sound-alike" substitutions may have occurred due to the inherent limitations of voice recognition software. These areas are purely typographical due to imperfections of the software programs and do not reflect any compromise in the patient's medical care. Please read the chart carefully and recognize, using context, where these substitutions have occurred. Chief Complaint: Abdominal Pain Time Seen by MD: 02:00 Primary Care Provider: NONE Reviewed Notes: Medications, Allergies Allergies: Coded Allergies: NO KNOWN ALLERGIES (Unverified , 01/03/25) Home Meds Active Scripts Omeprazole Magnesium (Omeprazole) 20 Mg Tab, 20 MG PO DAILY PRN, #30 TAB Prn abdominal pain Prov:AU RAJAN,JEANETTE T MD 02/01/25 Ondansetron Odt 4MG Tab (ZOFRAN PO) 4 Mg Tb, 4 MG PO TID PRN, #20 TAB Prn nausea/vomiting ODT TAB-DISSOLVE IN MOUTH, THEN SWALLOW Prov:JEANETTE BA MD 02/01/25 Nitrofurantoin Monohydrate Mac (Macrobid) 100 Mg Cap, 100 MG PO BID for 7 Days, #14 CAP Prov:JEANETTE BA MD 01/03/25 Ondansetron Odt 4MG Tab (ZOFRAN PO) 4 Mg Tb, 4 MG PO TID PRN, #30 TAB Prn nausea/vomiting ODT TAB-DISSOLVE IN MOUTH, THEN SWALLOW Prov:JEANETTE BA MD 01/03/25 Ibuprofen Micronized (Ibuprofen) 800 Mg Tab, 800 MG PO Q8HP PRN, #30 TAB Prn pain. Take with food. 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 Was a procedure done?: No GI differential Dx Differential Diagnosis: Other (DDX include Diverticulitis, colitis, gastroenteritis, acute abdomen, SBO, enteritis, constipation, volvulus, appendicitis, Gallbladder disease, choledocolithiasis, ascending cholangitis, pancreatitis, intraAbdominal mass/neoplasm, hepatitis, UTI, pylonephritis, kidney stone, aneurysm, dissection, Inflammatory bowel disease, gastroparesis, ischemic bowel, ovarian torsion, ovarian cyst/mass, tubo-ovarian abscess, , ectopic , PID, STD.) X-Ray, Labs, Meds, VS Vital Signs Date Time Temp Pulse Resp B/P (MAP) Pulse Ox O2 Delivery O2 Flow Rate FiO2 03/01/25 05:07 86 16 96 Room Air* 0 21 21 03/01/25 05:06 97.7 89 18 132/87 (102) 100 97.7 02/28/25 23:20 98.4 99 16 136/91 96 98.4 Lab Test 03/01/25 02:11 02/28/25 23:59 Range/Units Urine Color Colorless Yellow Urine Clarity Clear Clear Urine pH 8.5 5.0-9.0 Urine Specific [place] 1.014 1.001-1.035 Urine Protein 1+ H Negative Urine Ketones Negative Negative Urine Blood Negative Negative /uL Urine Nitrite Negative Negative Urine Bilirubin Negative Negative Urine Urobilinogen Normal Negative mg/dL Urine Leukocyte Esterase Negative Negative /uL Urine RBC None seen 0 - 4 /hpf Urine Microscopic WBC < 1 0-5 /HPF Urine Squamous Epithelial Cells Few <5 /hpf Urine Bacteria None seen None Seen /hpf Urine Glucose Normal Normal mg/dL Urine Test Negative Negative White Blood Count 13.0 H 4.4-10.8 10^3/uL Red Blood Count 4.61 4.0-5.20 10^6/uL Hemoglobin 14.2 12.2-16.2 g/dL Hematocrit 40.6 36.0-46.0 % Mean Corpuscular Volume 88.1 80.0-100.0 fL Mean Corpuscular Hemoglobin 30.9 28.0-32.0 pg Mean Corpuscular Hemoglobin Concent 35.0 32.0-36.0 g/dL Red Cell Distribution Width 13.7 11.8-14.3 % Platelet Count 306 140-450 10^3/uL Mean Platelet Volume 8.3 6.9-10.8 fL Neutrophils (%) (Auto) 74.8 37.0-80.0 % Lymphocytes (%) (Auto) 16.8 10.0-50.0 % Monocytes (%) (Auto) 7.2 0.0-12.0 % Eosinophils (%) (Auto) 0.3 0.0-7.0 % Basophils (%) (Auto) 0.9 0.0-2.0 % Neutrophils # (Auto) 9.7 H 1.6-8.6 10 ^3/uL Lymphocytes # (Auto) 2.2 0.4-5.4 10 ^3/uL Monocytes # (Auto) 0.9 0-1.3 10 ^3/uL Eosinophils # (Auto) 0 0-0.8 10 ^3/uL Basophils # (Auto) 0.1 0-0.2 10 ^3/uL Nucleated Red Blood Cells 0.0 % Sodium Level 141 136-145 mmol/L Potassium Level 2.6 L 3.5-5.1 mmol/L Chloride Level 102 98-107 mmol/L Carbon Dioxide Level 29 20-31 mmol/L Anion Gap 10 5-15 Blood Urea Nitrogen < 5 L 9-23 mg/dL Creatinine 0.79 0.550-1.02 mg/dL Glomerular Filtration Rate Calc 95 >90 mL/min BUN/Creatinine Ratio 6.3 L 10.0-20.0 Serum Glucose 139 H 74-106 mg/dL Lactic Acid Level 1.4 0.4-2.0 mmol/L Calcium Level 8.8 8.7-10.4 mg/dL Total Bilirubin 0.5 0.2-1.0 mg/dL Aspartate Amino Transferase (AST) 23 13-40 U/L Alanine Aminotransferase (ALT) 17 7-40 U/L Alkaline Phosphatase 89 46-116 U/L Troponin I High Sensitivity < 3 L </=34 ng/L Total Protein 6.8 5.7-8.2 g/dL Albumin 3.9 3.2-4.8 g/dL Lipase 46 12-53 U/L Acetaminophen Level < 2.0 L 10.0-20.0 UG/ML Plasma/Serum Blood Alcohol < 3.0 <10 mg/dL Current Medications Medications (Trade) Dose Ordered Sig/Mike Route Start Time Stop Time Status Last Admin Potassium Chloride (Klor-Con Tablet) 80 meq ONCE ONCE PO 03/01/25 02:15 03/01/25 02:16 DC 03/01/25 02:56 Sucralfate (Carafate Tab) 1 gm ONCE ONCE PO 03/01/25 02:15 03/01/25 02:16 DC 03/01/25 02:15 Pantoprazole Sodium (Protonix Tablet) 40 mg ONCE ONCE PO 03/01/25 02:15 03/01/25 02:16 DC 03/01/25 02:56 Lidocaine HCl (Xylocaine 2% Viscous) 10 ml ONCE ONCE PO 03/01/25 02:15 03/01/25 02:16 DC 03/01/25 02:56 [facility] [address] [facility] [address] Ph: [phone] DIAGNOSTIC IMAGING Diagnostic Imaging Report : [id number] Signed PATIENT: KASSIDY BROWN ACCT: [id number] UNIT: [id number] : 1980 LOC: ER ROOM / BED: / AGE / SEX: 44 / F ADM STATUS: REG ER SERVICE 2333 ORDERING PHYSICIAN: DEB SANTO DO PROCEDURE(s): ABDL - ABDOMEN LIMITED REASON: RUQ PAIN ORDER NUMBER(s): [id number], ACCESSION NUMBER(s): [id number] INDICATION: RUQ PAIN TECHNIQUE: Multiple real-time sonographic images were obtained of the right upper quadrant. COMPARISON: None FINDINGS: The liver demonstrates homogenous echotexture without focal mass lesions. The liver measures 14 cm. There is no intrahepatic or extrahepatic ductal dilatation. The common duct romie sures 4 mm. The gallbladder is without evidence of stone or sludge. The gallbladder wall measures 4 mm and is within normal limits. The right kidney measures 10.4 cm. The right kidney is normal in contour, size, and shape. The echogenicity is normal. There is no hydronephrosis. Visualized portions of the pancreas are unremarkable. IMPRESSION: 1. Nonspecific mild thickening of the gallbladder wall. No cholelithiasis or biliary sludge. ATED BY: MARYLOU ANN MD DICTATED DATE/TIME: 03/01/2515 SIGNED BY: MARYLOU ANN MD SIGNED DATE/TIME: 03/01/2515 CC: Time of 1ST Reevaluation: 02:30 Reevaluation 1ST: Unchanged Time of 2ND Reevaluation: 00:00 Reevaluation 2ND: Improved Patient Education/Counseling: Diagnosis, Treatment Family Education/Counseling: No Family Present Comments MDM: patient presented with the above HPI.--epigastric abdominal pain---workup was initiated. patient was found with the above mentioned diagnosis. the following medications were ordered: please refer to order lists of meds and tests obtained by myself Dr. Santo. Patient ED course and VS have been stabilized. Patient has been reassessed in the ED and remained in a stable condition. Pertinent incidental findings were discussed with the patient and/or family. Patient/family voices understanding and is agreeable with plan. Patient has been observed in the ED adequate length of time to insure improvement/stability. Escalation of care considered: Consideration of escalation to observation or admission Patient was DISCHARGED home in a stable condition. All the reports of any imaging studies that were ordered by myself were reviewed by myself. Departure 1 Departure Time of Disposition: 02:11 Impression: Primary Impression: Epigastric pain Additional Impression: Hypokalemia Disposition: HOME / SELF CARE / HOMELESS Condition: Stable Additional Instructions: Additional instructions: Please read all instructions provided in this packet carefully. You MUST follow-up with your primary care/family doctor in 1 to 2 days. If you are unable to see your primary care/family doctor, please return to our emergency room for re-assessment and re-evaluation in 1 to 2 days. Return to the emergency room here in our facility or to the nearest ER [facility] if your symptoms change or worsen. CONSULTATIONS: you MUST Follow-up for consultation as soon as possible with: ---gastroenterology in 1-2 days. Please call for appointment. You MUST call the consultants office yourself to make an appointment. You may need to arrange that through your insurance and/or your primary/family doctor. If you are unable to see the oim consultant in 1 to 2 days, you must return to our emergency room (or any other ER of your choice) for re-assessment and re- evaluation. Adequate fluid hydration. Although you have been discharged from the Emergency Department, this does not mean that you have a "clean bill of health". No definitive diagnosis for your symptoms has been made today. It is possible that you are in the process of developing a serious illness. This is why you must return to the ED without fail if any new or worsening symptoms develop. Avoid fatty greasy spicy food. Avoid caffeinated products. Avoid NSAIDs. Below is a copy of your radiological report for follow up: [address] [address] Ph: [phone] DIAGNOSTIC IMAGING Diagnostic Imaging Report : [id number] Signed PATIENT: KASSIDY BROWN ACCT: [id number] UNIT: [id number] : 1980 LOC: ER ROOM / BED: / AGE / SEX: 44 / F ADM STATUS: REG ER SERVICE 2333 ORDERING PHYSICIAN: DEB SANTO DO PROCEDURE(s): ABDL - ABDOMEN LIMITED REASON: RUQ PAIN ORDER NUMBER(s): [id number], ACCESSION NUMBER(s): [id number] INDICATION: RUQ PAIN TECHNIQUE: Multiple real-time sonographic images were obtained of the right upper quadrant. COMPARISON: None FINDINGS: The liver demonstrates homogenous echotexture without focal mass lesions. The liver measures 14 cm. There is no intrahepatic or extrahepatic ductal dilatation. The common duct measures 4 mm. The gallbladder is without evidence of stone or sludge. The gallbladder wall measures 4 mm and is within normal limits. The right kidney measures 10.4 cm. The right kidney is normal in contour, size, and shape. The echogenicity is normal. There is no hydronephrosis. Visualized portions of the pancreas are unremarkable. IMPRESSION: 1. Nonspecific mild thickening of the gallbladder wall. No cholelithiasis or biliary sludge. ATED BY: MARYLOU ANN MD DICTATED DATE/TIME: 03/01/2515 SIGNED BY: MARYLOU ANN MD SIGNED DATE/TIME: 03/01/2515 CC: Discharged With: Self Critical Care Note Critical Care Time?: No I personally scribed for DEB SANTO DO ([email or web address]) on 03/01/25 at 02:08. Electronically submitted by Paula Petty ([email or web address]). I personally scribed for DEB SANTO DO ([email or web address]) on 03/01/25 at 02:14. Electronically submitted by Paula Petty ([email or web address]). DEB SANTO DO Mar 01, 2025 02:08
[2025-03-01] MEDS: SUCRALFATE 1 GM TAB PO ONE (02:15)
[2025-03-01] MEDS: POTASSIUM CHL 20 Meq TABLET PO ONE (02:56)
[2025-03-01] MEDS: PANTOPRAZOLE 40 MG TAB PO ONE (02:56)
[2025-03-01] MEDS: LIDOCAINE VISCOUS 2% 15ML UD PO ONE (02:56)
[2025-03-01 03:03] LABS: Urine Protein, UAD 1+ (Negative)
[2025-03-01 05:06] VITALS: BP 132/87; TEMP 97.7
[2025-03-01 05:07] VITALS: PULSE 86; RESP 16; O2SAT 96
== END 2025-03-01 05:10 | disposition home or self-care (01) ==
LOC: ER 23:15 → EDBD 23:15 → ER 03-01 05:10
DX: R10.13 Epigastric pain (principal); E87.6 Hypokalemia; I10 Essential (primary) hypertension; F10.90 Alcohol use, unspecified, uncomplicated; Z59.00 Homelessness unspecified; Z79.899 Other long term (current) drug therapy; Y90.9 Presence of alcohol in blood, level not specified
CPT/HCPCS: 36415; 76705; 80053; 80320; 80329; 81001; 81025; 83605; 83690; 84484; 85025